=== PATIENT | male | born 1960 | race Asian ===

== ENCOUNTER → 2016-07-15 | Outpatient (CLI) | payer BC ==
[~2016-07-15] MED LIST: CLR10 PO; TRAM-10 PO
--- NOTE | 2016-07-15 08:49 | DIAGNOSTIC IMAGING REPORT ---
SINUS CT CT DOSE: 289.26 mGycm HISTORY: Pain CHRONIC SINUSITIS TECHNIQUE: Multiaxial CT images of the paranasal sinuses were performed and reformatted in the coronal plane without the use of contrast. COMPARISON: None. FINDINGS: The frontal sinuses are clear. Moderate mucosal thickening right maxillary sinus. Minimal mucosal thickening inferior left maxillary sinus. Mild soft tissue narrowing of the right ostiomeatal unit. Both ostiomeatal units are otherwise patent. Minimal mucosal thickening of the ethmoid air cells. Sphenoid air cells are considered clear. The mastoid air cells are clear. The bilateral ostiomeatal units are patent. The nasal septum is midline. The orbits are unremarkable. IMPRESSION: 1. Moderate mucosal thickening of the right and to lesser extent left maxillary sinus. 2. Minimal mucosal thickening ethmoid sinuses. 3. The ostiomeatal units are patent bilaterally although there is moderate soft tissue narrowing on the right. Electronically signed by: Keny Woo M.D. 07/15/2016 8:48 AM Dictated Date/Time: 07/15/2016 8:43 AM
== END | disposition home or self-care (01) ==
LOC: C.CTS 08:12
PROVIDERS: ATTEND Otolaryngology
DX: J32.9 Chronic sinusitis, unspecified (principal)

== ENCOUNTER → 2016-08-06 | Day surgery (SDC) | payer BC ==
[2016-07-23 08:03] VITALS: Ht 172.7 cm; Wt 86.4 kg
--- NOTE | 2016-08-05 23:47 | HISTORY & PHYSICAL EXAMINATION ---
DATE OF ADMISSION: 08/06/2016 DIAGNOSES: Chronic sinusitis and nasal polyposis. HISTORY OF PRESENT ILLNESS: This 55-year-old male presented with recurrent and chronic sinusitis. He was found endoscopically to have a granuloma on the right floor of the nose and significant sinus disease on CT scan. Endoscopic sinus surgery plus biopsy of the granuloma on the floor of the right nostril is felt to be indicated. PAST MEDICAL HISTORY: Medical problems: None. PREVIOUS SURGERIES: Hemorrhoidectomy. MEDICATIONS: None. ALLERGIES: No known drug allergies. FAMILY HISTORY: Negative. SOCIAL HISTORY: Negative. REVIEW OF SYSTEMS: Otherwise, negative. PHYSICAL EXAMINATION: GENERAL: WNWD male. VITAL SIGNS: 5 feet 8 inches and 185 pounds. HEAD: Normocephalic. EYES: Normal. EARS: Tympanic membranes intact. NOSE: Nasal passages show granulomatous type polyp in the floor of the right nostril. THROAT: Oropharynx normal. NECK: Supple. HEART: RRR. LUNGS: Clear. ABDOMEN: Soft. GENITOURINARY: Deferred. EXTREMITIES: Full range of motion. IMAGING DATA: CT documented significant pansinusitis. IMPRESSION: Chronic sinusitis and granuloma on the floor of the right nostril. PLAN: For endoscopic sinus surgery and excisional biopsy of granuloma. JAYNE
[~2016-08-06] VITALS: Ht 172.7 cm; Wt 86.4 kg
[~2016-08-06] MED LIST changes: +ATROPINE SULFATE 0.1 MG/ML 5ML SYR IV PRN; +BACITRACIN OINT 15 GM TUBE ONE; +CEFAZOLIN 2000 MG/60 ML D5W IV SCH; +DEXAMETHASONE SOD INJ 4 MG/ML VIAL ONE; +EpHEDrine SULFATE INJ 50 MG/ML AMP IV PRN; +EpINEphrine INJ 1MG/ML AMP 1 MG/ML AMP ONE; +FENTANYL CITRATE INJ 50 MCG/1 ML 2 ML VIAL IV PRN; +FENTANYL CITRATE INJ 50 MCG/1 ML 2 ML VIAL ONE; +GELATIN SPONGE 12-7MM ONE; +HydrALAZINE HCL 20 MG/ML VIAL IV. SCH; +HydrALAZINE HCL 20 MG/ML VIAL ONE; +LABETALOL HCL IV 5 MG/ML 20ML IV ONE; +LABETALOL HCL IV 5 MG/ML 20ML IV PRN; +LACTATED RINGER'S 1000ML 1,000 ML IV SCH; +LIDO 2%/EPINEPHRINE 1:100000 20 ML VIAL INFIL ONE; +LIDOCAINE 4% MPF SOAK 5 ML = 1 DOSE TOP ONE; +LIDOCAINE HCL 2% 2 ML VIAL (20MG/ML) ONE; +MIDAZOLAM HCL 1 MG/ML 2ML VIAL ONE; +NURSING VERBAL MED ORDER ONE; +ONDANSETRON INJ 2 MG/ML 2 ML VIAL ONE; +OXYCODONE/ACETAMINOPHEN 5-325 TAB PO PRN; +PROPOFOL IV EMULSION 10 MG/ML 20 ML VIAL IV ONE; +SODIUM CHLORIDE 0.9% 1000ML 1,000 ML IV SCH
--- NOTE | 2016-08-06 07:01 | History & Physical Bridge Note ---
H&P Re-Evaluation Bridge Note: I have examined the patient, reviewed the History & Physical and in the interval since the performance of the History & Physical I have noted the following changes of clinical significance: No changes noted
--- NOTE | 2016-08-06 09:13 | Discharge Instructions-SurgCtr ---
Discharge Instructions Date of Service Aug 06, 2016. Visit Reason for Visit: Chronic Sinusitis, Polyp Right Nasal Floor Discharge Discharge Diagnosis / Problem: same Discharge Goals Goal(s): Improve disease control, Diagnostic testing Activity Recommendations Activity Limitations: resume your previous activity Anesthesia . Post Anesthesia Instructions: If you have had General Anesthesia or IV Sedation: * Do not drive today. * Resume driving when surgeon permits. * Do not make important decisions or sign legal documents today. * Call surgeon for: 1. Temperature elevations greater than 101 degrees F. 2. Uncontrollable pain. 3. Excessive bleeding. 4. Persistent nausea and vomiting. 5. Medication intolerance (nausea, vomiting or rash). * For nausea and vomiting use only clear liquids such as: tea, soda, bouillon until nausea subsides, then gradually increase diet as tolerated. * If you have any concerns or questions, call your surgeon's office. If physician is unavailable and it is an emergency, call 911 or go to the nearest emergency room. . Instructions / Follow-Up Instructions / Follow-Up ACTIVITY RECOMMENDATIONS: * Being up and around is good, but no strenuous activity, heavy lifting or physical exertion for one week. * Keep your head elevated 30 degrees when lying down or sleeping. * Do not blow your nose for 48 hours, sniff back instead. * Avoid hot showers. OVER THE COUNTER MEDICATIONS: * You may use Tylenol * Avoid aspirin or aspirin containing products, e.g. as they may increase bleeding. SPECIAL CARE INSTRUCTIONS: * Expect to have bloody drainage from your nose and/or down your throat for one to three days. Change drip pad as needed. * Begin irrigating your nose with saline solution today, at least six to ten times per day and sniff back to help remove old clots or crust. * You may experience nasal and facial congestion, pain and pressure, this is normal. * Please call with any significant and/or progressive pain, redness, swelling around the eyes, visual changes, fever of 101.5 degrees F, active bleeding or any problems or concerns. * If active bleeding occurs, spray the nose three times at one minute intervals with Afrin spray and call or cell phone: . If unable to reach the doctor, go to the nearest Emergency Department. Special Diet: * Avoid extremely hot fluids. FOLLOW UP VISIT: Follow-up Visit with Dr. Beckett If not already scheduled, please call to schedule. Diet Recommendations Home Diet: no limitations Pending Studies Studies pending at discharge: no Medical Emergencies . Who to Call and When: Medical Emergencies: If at any time you feel your situation is an emergency, please call 911 immediately. . Non-Emergent Contact Non-Emergency issues call your: Primary Care Provider . . "Provider Documentation" section prepared by Jael Beckett. [place] Drug Monitoring Program Search Results: no issues identified
[2016-08-06 11:45] VITALS: TEMP 37.3
--- NOTE | 2016-08-06 11:48 | OPERATIVE REPORT ---
DATE OF OPERATION: 08/06/2016 PREOPERATIVE DIAGNOSIS: Chronic sinusitis and granuloma right floor of nose. POSTOPERATIVE DIAGNOSIS: Same. PROCEDURE: Endoscopic sinus surgery with right and left frontal, right and left total ethmoidectomy and right and left maxillary sinus antrostomies and excisional biopsy of granuloma right floor of nose. SURGEON: Dr. Beckett. ANESTHESIA: General LMA. COMPLICATIONS: None. BLOOD LOSS: 50 mL. HISTORY OF PRESENT ILLNESS: This 55-year-old gentleman has had a many year history of recurrent chronic sinusitis, opacified maxillary sinuses, mucosal thickening blocking the nasofrontal duct and ethmoids. He also has a granuloma at the posterior right floor of the nose. Excisional biopsy was needed. PROCEDURE: The patient brought to the operating room and placed in supine position. General anesthesia was induced using LMA, prepped, draped in usual sterile manner. Nose decongested using topical cottonoids with a solution of 4 mL of 4% Xylocaine with 1 mL of epinephrine. Injection 2% Xylocaine 1:1,000 strength epinephrine was also used. GREE device was calibrated and used for the entire procedure. The right maxillary sinus cannulated with wire, dilated using 6 mm with balloon as was the left maxillary sinus. The left nasofrontal duct was cannulated with guidewire and dilated using the 6 mm balloon. The guidewire was left in place as a marker. The shaver was coupled with the BrainLAB device and used to open up the nasofrontal duct by removing the medial wall of the nasofrontal duct opening up the nasofrontal duct widely. At this point, the biopsy was taken of the bullae ethmoidalis and the ethmoid mucosa and the bullae ethmoidalis was further opened with the shaver. The ground lamella was penetrated and the posterior ethmoid air cells were opened. The posterior most ethmoid air cell was identified along with the skull base and lamina papyracea. These structures were followed anteriorly exonerating all the posterior and then all the anterior ethmoid air cells which were filled with polypoid mucosa. Nasofrontal duct was noted to be widely open after opening up the ethmoids. The mucosa there was left intact. The nasofrontal duct was redilated with the 6 mm balloon and left open open. The maxillary sinus was opened by removing polypoid mucosa at the posterior border which is the anterior wall of the bullae ethmoidalis. The right frontal sinusotomy, total ethmoidectomy, and maxillary sinus antrostomy was performed in a similar manner. The stents were placed. The right miniature stent was placed in the right nasofrontal duct and then 2 regular size stents were placed, 1 each in the ethmoid cavity. At this point, the granuloma at the right floor of nose was excised using the sickle knife and the 15 blade and excised for biopsy. The Gelfoam was placed along the right floor of the nose as packing. The patient tolerated the procedure well and was taken to recovery area in satisfactory condition. I attest to the content of the Intraoperative Record and any orders documented therein. Any exceptio ns are noted below.
[2016-08-06 12:12] VITALS: BP 134/90; PULSE 86; O2SAT 97
--- NOTE | 2016-08-06 12:13 | Anesthesia Progress Nt - [facility] ---
Anesthesia Post Op Note Date & Time Aug 06, 2016 at 12:14 Vital Signs Pain Intensity: 0 Vital Signs Past 12 Hours Date Time Temp Pulse Resp B/P Pulse Ox O2 Delivery O2 Flow Rate FiO2 08/06/16 11:45 37.3 82 18 145/93 98 Room Air 08/06/16 11:40 86 08/06/16 11:40 86 97 08/06/16 11:39 143/97 08/06/16 11:36 82 22 08/06/16 11:36 82 22 97 08/06/16 11:35 37.4 83 16 137/95 97 Room Air 08/06/16 11:35 137/95 08/06/16 11:34 83 15 96 08/06/16 11:34 83 15 08/06/16 11:33 83 17 96 08/06/16 11:33 83 17 96 08/06/16 11:33 84 17 08/06/16 11:33 84 17 08/06/16 11:30 150/99 08/06/16 11:30 150/99 08/06/16 11:28 93 14 08/06/16 11:28 94 14 97 08/06/16 11:28 94 14 97 08/06/16 11:28 93 14 08/06/16 11:25 150/103 08/06/16 11:25 150/103 08/06/16 11:23 99 23 97 08/06/16 11:23 100 23 08/06/16 11:23 99 23 97 08/06/16 11:23 100 23 08/06/16 11:22 160/103 08/06/16 11:22 160/103 08/06/16 11:20 171/110 08/06/16 11:20 171/110 08/06/16 11:18 102 25 08/06/16 11:18 102 25 97 08/06/16 11:18 102 25 97 08/06/16 11:18 102 25 08/06/16 11:15 153/108 08/06/16 11:15 153/108 08/06/16 11:13 99 22 08/06/16 11:13 99 22 08/06/16 11:13 98 22 97 08/06/16 11:13 98 22 97 08/06/16 11:11 158/102 08/06/16 11:11 158/102 08/06/16 11:10 150/108 08/06/16 11:10 150/108 08/06/16 11:08 92 16 08/06/16 11:08 91 16 97 08/06/16 11:08 91 16 97 08/06/16 11:08 92 16 08/06/16 11:07 90 16 153/104 97 08/06/16 11:07 91 16 08/06/16 11:05 150/104 08/06/16 11:02 91 17 08/06/16 11:02 91 17 97 08/06/16 11:00 147/106 08/06/16 10:57 86 17 98 08/06/16 10:57 85 17 08/06/16 10:55 158/111 08/06/16 10:53 161/112 08/06/16 10:52 87 17 08/06/16 10:52 85 17 98 08/06/16 10:51 153/107 08/06/16 10:49 161/110 08/06/16 10:47 88 18 08/06/16 10:47 88 18 99 08/06/16 10:46 88 24 100 08/06/16 10:46 88 24 100 08/06/16 10:46 88 24 08/06/16 10:46 88 24 08/06/16 10:45 142/101 08/06/16 10:45 142/101 08/06/16 10:41 82 12 08/06/16 10:41 81 12 100 08/06/16 10:41 81 12 100 08/06/16 10:41 82 12 08/06/16 10:40 149/103 08/06/16 10:37 77 7 08/06/16 10:37 76 7 100 08/06/16 10:35 148/105 08/06/16 10:32 76 10 100 08/06/16 10:32 76 10 08/06/16 10:30 147/100 08/06/16 10:27 77 9 100 08/06/16 10:27 78 9 08/06/16 10:25 146/105 08/06/16 10:22 75 8 08/06/16 10:22 76 8 100 08/06/16 10:21 75 4 100 08/06/16 10:21 75 4 08/06/16 10:20 154/101 08/06/16 10:16 78 8 100 08/06/16 10:16 79 8 08/06/16 10:15 79 13 08/06/16 10:15 78 13 147/106 100 08/06/16 10:10 83 122/102 100 08/06/16 10:10 83 146/98 08/06/16 10:10 36.2 86 16 146/98 100 Mask 8 08/06/16 07:52 36.9 83 18 140/98 96 Room Air Notes Mental Status: alert / awake / arousable, participated in evaluation Pt Amnestic to Procedure: Yes Nausea / Vomiting: adequately controlled Pain: adequately controlled Airway Patency, RR, SpO2: stable & adequate BP & HR: stable & adequate Hydration State: stable & adequate Anesthetic Complications: no major complications apparent
== END | disposition home or self-care (01) ==
LOC: X.SURG 07:42
PROVIDERS: ATTEND Otolaryngology
DX: J32.9 Chronic sinusitis, unspecified (principal); J34.89 Other specified disorders of nose and nasal sinuses; Z98.890 Other specified postprocedural states

== ENCOUNTER → 2016-12-10 | Outpatient (CLI) | payer BC ==
[~2016-12-10] MED LIST changes: -ATROPINE SULFATE 0.1 MG/ML 5ML SYR IV PRN; -BACITRACIN OINT 15 GM TUBE ONE; -CEFAZOLIN 2000 MG/60 ML D5W IV SCH; -DEXAMETHASONE SOD INJ 4 MG/ML VIAL ONE; -EpHEDrine SULFATE INJ 50 MG/ML AMP IV PRN; -EpINEphrine INJ 1MG/ML AMP 1 MG/ML AMP ONE; -FENTANYL CITRATE INJ 50 MCG/1 ML 2 ML VIAL IV PRN; -FENTANYL CITRATE INJ 50 MCG/1 ML 2 ML VIAL ONE; -GELATIN SPONGE 12-7MM ONE; -HydrALAZINE HCL 20 MG/ML VIAL IV. SCH; -HydrALAZINE HCL 20 MG/ML VIAL ONE; -LABETALOL HCL IV 5 MG/ML 20ML IV ONE; -LABETALOL HCL IV 5 MG/ML 20ML IV PRN; -LACTATED RINGER'S 1000ML 1,000 ML IV SCH; -LIDO 2%/EPINEPHRINE 1:100000 20 ML VIAL INFIL ONE; -LIDOCAINE 4% MPF SOAK 5 ML = 1 DOSE TOP ONE; -LIDOCAINE HCL 2% 2 ML VIAL (20MG/ML) ONE; -MIDAZOLAM HCL 1 MG/ML 2ML VIAL ONE; -NURSING VERBAL MED ORDER ONE; -ONDANSETRON INJ 2 MG/ML 2 ML VIAL ONE; +OPTIRAY 320 IV PRN; -OXYCODONE/ACETAMINOPHEN 5-325 TAB PO PRN; -PROPOFOL IV EMULSION 10 MG/ML 20 ML VIAL IV ONE; -SODIUM CHLORIDE 0.9% 1000ML 1,000 ML IV SCH
--- NOTE | 2016-12-10 10:36 | DIAGNOSTIC IMAGING REPORT ---
CT SCAN OF THE CHEST WITH IV CONTRAST CLINICAL HISTORY: Hemoptysis. COMPARISON STUDY: Chest x-ray dated 03/27/2016. Chest CT dated 07/20/2016. TECHNIQUE: Following the IV administration of 94 cc of Optiray 320, CT scan of the thorax was performed from the thoracic inlet to the upper abdomen. Images are reviewed in the axial, sagittal, and coronal planes. IV contrast was administered without complication. A dose lowering technique was utilized adhering to the principles of ALARA. CT DOSE: 361.87 mGy.cm FINDINGS: Thyroid: Imaged portions of the thyroid gland are normal in size and attenuation. Thoracic aorta: The thoracic aorta is normal in caliber and demonstrates standard 3-vessel arch anatomy. No dissection is seen. Pulmonary vasculature: The pulmonary trunk is normal in caliber. There are no filling defects identified in the central pulmonary vessels to indicate pulmonary embolus. Note that this examination was not protocoled for evaluation of the pulmonary arteries. Heart: The heart is normal in size and configuration, and without pericardial effusion. Lungs and pleural spaces: There is no airspace consolidation or pleural effusion. Small fat-containing Bochdalek hernias are noted. No concerning pulmonary lesion is identified. The trachea and central airways are clear. A small tracheal diverticulum is seen posteriorly on axial image #47. Mediastinum: There is no mediastinal lymphadenopathy. Maria Luz: Clear. Axillae: There is no axillary lymphadenopathy. Upper abdomen: There is evidence of hepatic steatosis. A tiny hiatal hernia is identified. Skeletal structures: No lytic or blastic bony lesions are seen. IMPRESSION: The lungs are clear Electronically signed by: Felipe Rodriguez M.D. 12/10/2016 10:35 AM Dictated Date/Time: 12/10/2016 10:29 AM
== END | disposition home or self-care (01) ==
LOC: C.CTS 10:03
PROVIDERS: ATTEND Internal Medicine Pulmonary Disease
DX: R04.2 Hemoptysis (principal); R76.12 Nonspecific reaction to cell mediated immunity measurement of gamma interferon antigen response without active tuberculosis

== ENCOUNTER 2016-12-14 08:42 | Day surgery (SDC) | payer BC ==
[2016-12-14] VITALS (11 sets, daily range): BP systolic 131–160; BP diastolic 91–116; PULSE 61–88; TEMP 36.5–37.1; O2SAT 97–100; Ht 172.7 cm; Wt 86.2 kg
[~2016-12-14] VITALS: Ht 172.7 cm; Wt 86.2 kg
[~2016-12-14 08:42] MED LIST changes: -OPTIRAY 320 IV PRN
[2016-12-14] MEDS ORDERED: LEVALBUTEROL 1.25MG/3ML NEB INH ONE (08:43)
[2016-12-14] MEDS ORDERED: LIDOCAINE 4% W/AFRIN NASAL SOLN 4ML ONE (08:43)
[2016-12-14] MEDS ORDERED: MIDAZOLAM HCL 5 MG/ML 1 ML VIAL IV ONE ×2 (08:43→11:30)
[2016-12-14] MEDS ORDERED: LIDOCAINE HCL 2% LOCAL 50ML VIAL INFIL ONE (08:43)
[2016-12-14] MEDS ORDERED: FENTANYL CITRATE INJ 50 MCG/1 ML 2 ML VIAL IV ONE ×2 (08:43→11:30)
--- NOTE | 2016-12-14 08:47 | Procedure Note ---
Pre-Mod Sedation Assessment General Date of Moderate Sedation: Dec 14, 2016. Pre-Sedation Airway Assessment Smoking Status: Never Smoker Mallampati Classification: Class I ASA Classification: Class I Procedure Planning Contraindications-for Mod Sed: None Yes Notes The planned sedation has been discussed with the patient and consent obtained. I have identified the patient, determined the appropriateness of sedation and have assessed the patient immediately prior to the procedure. All medicine(s) and interventions are by my order.
[2016-12-14 10:25] LABS: PROTHROMBIN TIME (PATIENT) 10.5 SECONDS (9.0-12.0)
[2016-12-14] MEDS ORDERED: NURSING VERBAL MED ORDER ONE (11:00)
--- NOTE | 2016-12-14 13:03 | Discharge Instructions ---
Discharge Instructions Date of Service Dec 14, 2016. Admission Reason for Admission: Hemoptysis, *Suspected Tb Precautions* Discharge Discharge Diagnosis / Problem: hemoptysis Discharge Goals Goal(s): Diagnostic testing Activity Recommendations Activity Limitations: as noted below Lifting Limitations: gradually increase as tolerated Shower/Bathe: no limitations Driving or Machine Use: resume 1 day after discharge . Instructions / Follow-Up Instructions / Follow-Up ACTIVITY RECOMMENDATIONS: * Rest today, resume normal activity tomorrow. * Do not drive today. SPECIAL CARE INSTRUCTIONS: * Call your physician if you experience any chest or shoulder pain, fever, coughing, spitting up blood (more than 2 teaspoons) or excessive shortness of breath. * Remove dressing from IV site (where needle was placed into the vein) after 2 hours. Apply a warm, moist compress to site if irritation occurs. Call physician if site becomes red or painful to touch. FOLLOW UP VISIT: * Keep any scheduled doctor appointments. Current Hospital Diet Patient's current hospital diet: Discharge Diet Recommended Diet: Regular Diet Procedures Procedures Performed: Bronchoscopy Pending Studies Studies pending at discharge: yes List of pending studies: Bronchoscopy microbiology and pathology results Medical Emergencies . Who to Call and When: Medical Emergencies: If at any time you feel your situation is an emergency, please call 911 immediately. . Non-Emergent Contact Non-Emergency issues call your: Research Professor Of Biostatistics . . "Provider Documentation" section prepared by Elodia Hart. . VTE Core Measure Inpt VTE Proph given/why not?: Contraindicated
--- NOTE | 2016-12-14 13:32 | OPERATIVE REPORT ---
DATE OF OPERATION: 12/14/2016 PROCEDURE: Fiberoptic bronchoscopy with bronchoalveolar lavage. 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 ANESTHESIA PREOPERATIVELY: None. ANESTHESIA DURING THE PROCEDURE: 3 mg IV Versed, 50 mcg IV fentanyl, 20 mL 2% Xylocaine spray above and below the cords, and 4% viscous Xylocaine intranasally. DESCRIPTION OF PROCEDURE: Fiberoptic bronchoscope was inserted into the left naris with minimal difficulty and passed to the level of the true vocal cords. The cords appear to approximate normally with phonation without evidence of lesions or paralysis. The scope was then introduced into the trachea and right and left tracheobronchial tree. The jesus was sharp. The right main stem bronchus was found to be free of endobronchial lesions. The right upper lobe, the apical posterior and anterior segments, bronchus intermedius, right middle lobe, medial and lateral segments and all basilar segments of right lower lobe were found to be free of endobronchial lesions. A small amount of mucopurulent secretion lavaged from right lower lobe until clear. The left tracheobronchial tree showed mild mucous pitting throughout the left tracheobronchial tree with no endobronchial lesions and no active bleeding. Left upper lobe, the apical-posterior and anterior segments, lingular subdivision, and left lower lobe were free of endobronchial lesions down to subsegmental bronchi. Each lobar segment was copiously lavaged with normosol and the aspirate sent for appropriate studies. Scope was removed back to the level of the nasopharynx and the sinus ostia were once again visualized with no active bleeding encountered. The scope was removed and then inserted into the right naris carefully and passed once again to the level of the nasopharynx and the vocal cords. No active bleeding was encountered. Some mucopurulent sinus drainage was seen draining from the sinus ostia and this area was lavaged with normosol and the aspirate sent for appropriate studies. No active bleeding was encountered. The procedure was then terminated and the patient was given a nebulizer treatment with Xopenex 1.25 mg and transferred to the medical treatment unit in hemodynamically stable with no signs of respiratory compromise. We will await microbiological and cytologic examination of the bronchial washings. I attest to the content of the Intraoperative Record and any orders documented therein. Any exception s are noted below.
[2016-12-16 12:28] LABS: HERPES SIMPLEX CULT SOURCE OTHER-R&L BRONCH WAS; HERPES SIMPLEX VIRUS CULT NOT ISOLATED (NOT ISOLATED)
== END 2016-12-14 13:26 | disposition home or self-care (01) ==
LOC: C.ACU 08:42
PROVIDERS: ATTEND Internal Medicine Pulmonary Disease
DX: R04.2 Hemoptysis (principal); R06.83 Snoring; I10 Essential (primary) hypertension; J30.2 Other seasonal allergic rhinitis; Z87.891 Personal history of nicotine dependence